=== PATIENT | male | born 1965 | race Hispanic/Latino ===

== ENCOUNTER 2019-01-27 08:51 | Day surgery (SDC) | payer OTHER ==
[2019-01-26 15:23] VITALS: BMI 26.1
[~2019-01-27 08:51] MED LIST: Cyclopentolate 1% Opth Drop 2 ML BOT FS SCH; Fentanyl 100 MCG/2 ML VIAL ONE; Fluorouracil 100 MG, Enoxaparin Sodium 25 MG, EPINEPHrine 0.3 MG in Ophthalmic Irrigati... IVPB SCH; Midazolam HCl 2 mg/2 ml Vial ONE; PROPOFOL 20 ML ONE; Phenylephrine 2.5% Ophth Soln 5 ML BOT FS SCH
[2019-01-27] MEDS ORDERED: Cyclopentolate 1% Opth Drop 2 ML BOT ONE (09:34)
[2019-01-27] MEDS ORDERED: Phenylephrine 2.5% Ophth Soln 5 ML BOT ONE (09:34)
[2019-01-27] MEDS ORDERED: PROPOFOL 200 MG/20 ML VIAL ONE (09:40)
[2019-01-27] MEDS ORDERED: Lidocaine 4% PF 5 ML AMP ONE (09:40)
[2019-01-27] MEDS ORDERED: Maxitrol 0.1% Opth Oint 3.5 GM TUBE ONE (09:40)
[2019-01-27] MEDS ORDERED: CEFAZOLIN 1 GM VIAL ONE (09:40)
[2019-01-27] MEDS ORDERED: Lidocaine 1% PF 5 ML VIAL ONE (09:40)
[2019-01-27] MEDS ORDERED: Bupivacaine 0.75% 10 ML AMP ONE (09:40)
[2019-01-27] MEDS ORDERED: Triamcinolone 40 MG/ML VIAL ONE (09:40)
--- NOTE | 2019-01-27 12:18 | OP ---
DATE OF PROCEDURE: 01/27/2019 PREOPERATIVE DIAGNOSIS: Rhegmatogenous retinal detachment, left eye. POSTOPERATIVE DIAGNOSIS: Rhegmatogenous retinal detachment, left eye. PROCEDURE PERFORMED: Pars plana vitrectomy, retinal detachment repair. ANESTHESIA: Local with monitored anesthesia care. PROCEDURE IN DETAIL: The patient was identified in the preoperative holding area. Appropriate informed consent for planned surgical procedure on the left had been obtained. The patient was transported to the operative suite, where appropriate cardiopulmonary monitoring established. Local anesthesia obtained using retrobulbar modified Van Lint lid block using 50:50 mixture of 4% lidocaine and 0.75% bupivacaine. The patient was prepped and draped in usual sterile manner for ophthalmic surgery on the left eye. Lid speculum was placed in the left eye. A 25-gauge trocar was placed through the conjunctivae and sclera superotemporally, inferotemporally, and superonasally. Infusion line was placed inferotemporally. Light pipe vitreous cutter inserted into the eye. Core vitrectomy was performed. Special attention was turned to the tear 2 o'clock position. Posterior drained retinotomy was created along the 4 o'clock meridian at the posterior edge of the subretinal fluid. Complete air-fluid exchange was performed 10 minutes being left for fluid to drain posteriorly. A 360 laser was placed using Endolaser delivery device. 28% sulfur hexafluoride gas was infused into the eye. Trocars were removed. Eye was noted to retain pressure well. Retrobulbar Kenalog and subconjunctival Ancef were Placed. Atropine antibiotic ointment placed and the eye was patched and shielded. The patient was taken to the postoperative recovery unit in good condition, having suffered no immediate perioperative complications. The patient was advised to position left side down, call if pain not relieved by Tylenol, followup appointment with Dr. Infante. Job ID: [id number]
== END 2019-01-27 12:40 | disposition home or self-care (01) ==
LOC: SDC 08:51
PROVIDERS: ATTEND Ophthalmology Retina Specialist
PROC: 08T53ZZ Resection of Left Vitreous, Percutaneous Approach (ICD-10-PCS; principal; 2019-01-27)
DX: H33.002 Unspecified retinal detachment with retinal break, left eye (principal); Z79.84 Long term (current) use of oral hypoglycemic drugs; Z79.899 Other long term (current) drug therapy
CPT/HCPCS: 67025; J0171; J1650; J2250; J2704; J3010; J9190